=== PATIENT | male | born 1965 | race Caucasian/White ===

== ENCOUNTER 2017-03-06 12:00 | Inpatient (IN) | payer BC ==
--- NOTE | ~2017-03-06 | OP ---
Record Of Operation [facility] [address] [place]. [address] NAME: DAPHNE PARNELL 3RD : 65 STATUS : DIS IN PAT#: [id number] AGE: 51 ADM/REG DATE : 03/06/17 MR#: [id number] REPORT SERV DATE: 03/09/17 DICTATED BY: YOSI EUBANKS DATE: 03/07/17 REPORT STATUS : Draft TRANSCRIBED BY: MODL DATE: 03/07/17 DATE OF PROCEDURE: 03/06/2017 TITLE OF OPERATION: 1. Cystourethroscopy with removal of left ureteral stent. 2. Robotic-assisted laparoscopic extensive ureterolysis. 3. Robotic-assisted laparoscopic ureteroureterostomy with placement of 6 x 26 left ureteral stent. PREOPERATIVE DIAGNOSIS: Left ureteral stricture. POSTOPERATIVE DIAGNOSIS: Left ureteral stricture. INDICATIONS: Mr. Parnell is a 51-year-old male with history of bilateral ureteral stones with hydronephrosis and renal failure. He had his stones treated. He has a period of prolonged ureteral stenting. His right side has healed very well. Left side had developed a stricture. He is here for repair. ANESTHESIA: General. COMPLICATIONS: None. IMPLANT: 1. 6 x 26 left ureteral stent. 2. A 16-Maori Loja catheter. 3. A #10 round KENAY drain. SPECIMENS: None. NARRATIVE: The patient was brought to the operating room, identified by his wristband. General anesthesia was induced and Ancef was given for preoperative antibiotics. A flexible cystoscope was placed into his urethra and into his bladder. The left ureteral stent was seen emanating from the left orifice. It was grasped with a flexible grasper and removed. Next, he was placed in the left flank position, secured to the bed with pads and tape. He was then prepped and draped in sterile fashion. The abdomen was insufflated to a pressure of 15 mmHg using a Veress needle. Standard port placement was performed on the left side of the body with four 8 mm ports placed under direct vision. A 12 mm port was placed in infraumbilical position for commercial assistant port. The robot was docked. I began the operation by dropping the colon along the white line of Toldt, exposing the retroperitoneum. The gonadal vein was identified and traced up to the level of the renal vein. Next beneath the gonadal vein, there was an inflammatory mass or tissue surrounding the ureter. The ureter was densely inflamed from the level of the renal pelvis all the way down into the true pelvis. I meticulously mobilized the ureter with the aid of Castillo scissors and bipolar cautery and clips. This took several hours as the ureter was quite encase, it was very nonmobile. Once the entire ureter had been freed, the area of scar was identified and transected with Castillo scissors. The ureter was spatulated proximally in a lateral direction. The scar was fairly Record Of Operation [place] [id number] [facility] [place]. [address] NAME: DAPHNE PARNELL 3RD : 65 STATUS : DIS IN PAT#: [id number] AGE: 51 ADM/REG DATE : 03/06/17 MR#: [id number] REPORT SERV DATE: 03/09/17 DICTATED BY: YOSI EUBANKS DATE: 03/07/17 REPORT STATUS : Draft TRANSCRIBED BY: MENDEZ DATE: 03/07/17 extensive. It was spatulated medially in a distal direction. At this time due to the extensive nature of the scar and the relative ureteral immobility, I had a hard time bringing the ends back together for reconstruction. Given these findings, I mobilized the kidney completely off the lateral sidewall and off the spleen and pancreas. Care was taken not to injure these structures. The kidney was then brought down inferiorly a centimeter or two. This allowed for me to get the ends back together. Using 4-0 Vicryl suture, an interrupted ureteroureterostomy was performed. A 6 x 26 ureteral stent was placed in an antegrade fashion. I did try to sew the proximal ureter up with 4-0 V lock suture at the end. Then during the operation, I did call Mr. Parnell's 's to discuss the findings of the ureteral dissection was challenging and had a high failure rate. We discussed the options including placing things back together, a nephrectomy. Mr. Parnell's creatinine baseline is 1.6. We both felt that taking out his kidney would be unduly risky, and putting him on dialysis. Therefore, reconstruction was performed. She understands that if this fails, he will need likely to have a ureteroileal interposition in order to save the kidney and not having indwelling stent. There was no extravasation of urine from the final repair. There are no complications. The robot was then undocked. A #10 KENYA drain was placed to the inferior port. The commercial assistant port was closed with 0 Vicryl suture using a Alberto-Quinn device. All ports were then removed. Subcutaneous tissues were closed with 3-0 Vicryl suture. Skin was closed with 4-0 Monocryl suture in a subcuticular fashion. Dermabond dressing was placed. The patient was awoken from anesthesia and transferred to the recovery room in stable condition. There were no complications. MAURO/MENDEZ Yosi Eubanks MD / [id number] CC: MD Miah Mccarthy D.O.
--- NOTE | ~2017-03-06 | PREOPHP ---
PreOp History and Physical [address] [place]. [address] NAME: DAPHNE PARNELL 3RD : 65 STATUS : DIS IN [facility]#: [id number] AGE: 51 ADM/REG DATE : 03/06/17 MR#: [id number] REPORT SERV DATE: 04/11/17 DICTATED BY: YOSI EUBANKS DATE: 04/11/17 REPORT STATUS : Draft TRANSCRIBED BY: MENDEZ DATE: 04/11/17 CHIEF COMPLAINT: Left ureteral stricture. HISTORY OF PRESENT ILLNESS: Mr. Parnell is a very pleasant gentleman who presented to me initially with bilateral ureteral stones with obstructing hydronephrosis. These were treated in stages. His right ureter healed fine. His left ureter developed a stricture. It seems to be a fairly short stricture. He is here for robotic-assisted laparoscopic ureterolysis with ureteroureterostomy. PAST MEDICAL HISTORY: Consistent with chronic kidney disease, nephrolithiasis, hypertension, hypercholesterolemia, diabetes, cataracts, sleep apnea. SURGICAL HISTORY: Lithotripsy with stent placement in the past. FAMILY HISTORY: Noncontributory. SOCIAL HISTORY: No smoking, drinking, or illegal drugs. FAMILY HISTORY: Noncontributory. MEDICATIONS: Reviewed on the chart. ALLERGIES: NO KNOWN DRUG ALLERGIES. REVIEW OF SYSTEMS: 12-point review of systems was performed. Pertinent positives listed in the HPI. PHYSICAL EXAMINATION: VITAL SIGNS: Afebrile. Vital signs stable. No acute distress. Appears stated age. HEENT: Head is normocephalic, atraumatic. LUNGS: Breathing nonlabored. He is not in respiratory distress. CARDIAC: Pulse is regular in rate and rhythm. ABDOMEN: Soft, nontender, nondistended. He has some left CVA tenderness. NEURO: He is alert and oriented x3. LABORATORY DATA: No new labs. IMAGING: No new imaging. ASSESSMENT AND PLAN: Mr. Parnell has a left ureteral stricture. He has been counseled regarding his options including nephrostomy tube placement, chronic stent placement, nephrectomy, and reconstruction. He is here for robot assisted laparoscopic reconstruction. Risks and benefits were discussed in detail. We will proceed as discussed. JKM/MODL PreOp History and Physical [address] [place]. [address] NAME: DAPHNE PARNELL 3RD : 65 STATUS : DIS IN PAT#: [id number] AGE: 51 ADM/REG DATE : 03/06/17 MR#: [id number] REPORT SERV DATE: 04/11/17 DICTATED BY: YOSI EUBANKS DATE: 04/11/17 REPORT STATUS : Draft TRANSCRIBED BY: MENDEZ DATE: 04/11/17 Yosi Eubanks MD / [id number] CC: MD Miah Mccarthy D.O.
[~2017-03-06 12:00] MED LIST: ADVIL MIGRAI200 MG PO; ASAB PO; AXIRON TOP; B12250T PO; BEN25 PO; BYETTA10 SC; CIP5 PO; CO Q-10100 MG PO; CO Q-1030 MG PO; COZAAR100 MG PO; CYANO1000T PO; DHA PO; ENDOCET1 TAB PO; FLAG500TAB PO; FLOMAX4 PO; FLORASTOR250 MG PO; GINKGO BILO2 PO; GLUCOPHAGE1000 MG PO; GLUCOTRO10 PO; GLUCPH PO; KRILL OIL PO; KRILLOIL PO; LANTUSCART SC; LIPITOR10 PO; LIPITOR20 PO; LIPITOR40 PO; LIPOTRIAD1 CAP PO; LOP25 PO; LORTAB10 PO; LORTABLIQ PO; LUNESTA1 MG PO; LUNESTA2 M1 PO; MULTIPLE VIT PO; MULTIVIT/MIN PO; NORV10 PO; NOVOLOG SC; OMEGA PO; PEPCID COMPLETE PO; PHENERGAN PO; POTASSIUM/MAGNESIUM PO; PRESERVISION A1 EAC1 PO; PRESERVISION PO; PRIN10 PO; TESTOSTERONE; VESICARE10 MG PO; VICTOZA18 MG/3 ML SC; VITAMIN D2000 UNIT PO; VITAMIN D31000 UNIT PO
[2017-03-06 22:00] LABS: BASOPHILS 0.1 %; BASOPHILS ABSOLUTE 0.01 10/3/uL (0.0-0.16); EOSINOPHILS 0 %; HEMATOCRIT 38.9 % (40.0-51.0); HEMOGLOBIN 13.5 g/dL (13.6-17.8); IMMATURE GRANULOCYTES 0.2 %; IMMATURE GRANULOCYTES ABSOLUTE 0.02 10/3/uL (0.0-0.11); LYMPHOCYTES 5.3 %; LYMPHOCYTES ABSOLUTE 0.64 10/3/uL (0.67-4.30); MANUAL DIFF NO %; MEAN CORPUS HGB CONC 34.7 g/dL (32.0-36.0); MEAN CORPUSCULAR HEMOGLOB 30.3 pg (26.0-34.0); MEAN CORPUSCULAR VOLUME 87.2 fL (80-100); MEAN PLATELET VOLUME 9.8 fL (9.2-13.0); MONOCYTES 6.3 %; MONOCYTES ABSOLUTE 0.75 10/3/uL (0.21-1.20); NEUTROPHILS 88.1 %; NEUTROPHILS ABSOLUTE 10.55 10/3/uL (2.02-8.40); PLATELET COUNT 209 10/3/uL (150-400); RBC DISTRIBUTION WIDTH 12.7 % (12.0-16.0); RED CELL COUNT 4.46 10/6/uL (4.7-6.1)
[2017-03-06 22:12] LABS: BUN (BLOOD UREA NITROGEN) 16 MG/DL (6-23); CALCIUM, SERUM 8.3 MG/DL (8.5-10.4); CHLORIDE, SERUM 104 MMOL/L (96-112); CREATININE 2.02 MG/DL (0.70-1.30); GFR AFRICAN AMERICAN 43 ML/MIN (>=60); GFR NON AFRICAN AMERICAN 37 ML/MIN (>=60); POTASSIUM, SERUM 3.9 MMOL/L (3.5-5.3); SODIUM, SERUM 144 MMOL/L (135-148)
[2017-03-06 22:16] LABS: CO2 (CARBON DIOXIDE) 25 MMOL/L (24-34); GLUCOSE, SERUM 206 MG/DL (60-99)
[2017-03-07 08:17] LABS: BASOPHILS 0.2 %; BASOPHILS ABSOLUTE 0.02 10/3/uL (0.0-0.16); EOSINOPHILS 0.1 %; EOSINOPHILS ABSOLUTE 0.01 10/3/uL (0.0-0.53); HEMATOCRIT 38.1 % (40.0-51.0); HEMOGLOBIN 13.1 g/dL (13.6-17.8); IMMATURE GRANULOCYTES 0.2 %; IMMATURE GRANULOCYTES ABSOLUTE 0.02 10/3/uL (0.0-0.11); LYMPHOCYTES 14.8 %; LYMPHOCYTES ABSOLUTE 1.33 10/3/uL (0.67-4.30); MEAN CORPUS HGB CONC 34.4 g/dL (32.0-36.0); MEAN CORPUSCULAR HEMOGLOB 30.3 pg (26.0-34.0); MONOCYTES 12.1 %; MONOCYTES ABSOLUTE 1.09 10/3/uL (0.21-1.20); NEUTROPHILS 72.6 %; NEUTROPHILS ABSOLUTE 6.52 10/3/uL (2.02-8.40); PLATELET COUNT 243 10/3/uL (150-400); RBC DISTRIBUTION WIDTH 12.7 % (12.0-16.0); RED CELL COUNT 4.33 10/6/uL (4.7-6.1)
[2017-03-07 08:20] LABS: MANUAL DIFF NO %
[2017-03-07 08:28] LABS: BUN (BLOOD UREA NITROGEN) 15 MG/DL (6-23); CALCIUM, SERUM 8.8 MG/DL (8.5-10.4); CHLORIDE, SERUM 107 MMOL/L (96-112); CREATININE 1.67 MG/DL (0.70-1.30); GFR AFRICAN AMERICAN 54 ML/MIN (>=60); GFR NON AFRICAN AMERICAN 47 ML/MIN (>=60); POTASSIUM, SERUM 4.3 MMOL/L (3.5-5.3); SODIUM, SERUM 146 MMOL/L (135-148)
[2017-03-07 08:29] LABS: CO2 (CARBON DIOXIDE) 30 MMOL/L (24-34); GLUCOSE, SERUM 132 MG/DL (60-99)
[2017-03-08] MEDS ORDERED: DSS PO (09:45)
[2017-03-08] MEDS ORDERED: MEP50TAB PO (09:45)
[2017-07-08] MEDS ORDERED: NOVOLOG SC (15:33)
[2017-07-08] MEDS ORDERED: TRESIBA FL100 UNIT/1 SC (15:33)
== END 2017-03-08 14:22 | disposition home or self-care (01) | DRG 660 ==
LOC: SDC/OF 12:00 → 4SO 22:00
PROVIDERS: Urology
DX: N13.1 Hydronephrosis with ureteral stricture, not elsewhere classified (principal); E11.22 Type 2 diabetes mellitus with diabetic chronic kidney disease; Z88.5 Allergy status to narcotic agent; I12.9 Hypertensive chronic kidney disease with stage 1 through stage 4 chronic kidney disease, or unspecified chronic kidney disease; N18.9 Chronic kidney disease, unspecified; G47.33 Obstructive sleep apnea (adult) (pediatric); E66.9 Obesity, unspecified; Z68.34 Body mass index [BMI] 34.0-34.9, adult; Z98.84 Bariatric surgery status
CPT/HCPCS: 36415; 80048; 82570; 82962; 85025; 86850; 86900; 86901; 86920; A9270-GY; C2617; J0690; J1170; J2250; J2370; J2405; J2710; J2795; J3010

== ENCOUNTER 2017-04-17 07:52 | Day surgery (SDC) | payer BC ==
[2017-04-13 13:18] LABS: ASCORBIC ACID (UR NOT ORDER) 40 (NEG); BILIRUBIN, URINE NEGATIVE (NEG); KETONE, URINE NEGATIVE (NEG); LEUKOCYTE ESTERASE(NOT OR LARGE (NEG); WBC (NOT ORDERED) (RFLEX) 36 (0-5)
[2017-04-13 13:20] LABS: HEMATOCRIT 41.5 % (40.0-51.0); HEMOGLOBIN 14.8 g/dL (13.6-17.8)
[2017-04-13 13:36] LABS: BUN (BLOOD UREA NITROGEN) 23 MG/DL (6-23); CALCIUM, SERUM 9.1 MG/DL (8.5-10.4); CHLORIDE, SERUM 106 MMOL/L (96-112); CO2 (CARBON DIOXIDE) 32 MMOL/L (24-34); CREATININE 1.49 MG/DL (0.70-1.30); GFR AFRICAN AMERICAN 62 ML/MIN (>=60); GFR NON AFRICAN AMERICAN 54 ML/MIN (>=60); GLUCOSE, SERUM 102 MG/DL (60-99); POTASSIUM, SERUM 3.8 MMOL/L (3.5-5.3); SODIUM, SERUM 142 MMOL/L (135-148)
--- NOTE | ~2017-04-17 | OP ---
Record Of Operation [facility] [address] [facility] [place]. [address] NAME: DAPHNE PARNELL 3RD : 65 STATUS : REG [facility]#: [id number] AGE: 51 ADM/REG DATE : 04/17/17 MR#: [id number] REPORT SERV DATE: 04/17/17 DICTATED BY: YOSI EUBANKS DATE: 04/17/17 REPORT STATUS : Draft TRANSCRIBED BY: MODL DATE: 04/17/17 DATE OF PROCEDURE: 04/17/2017 SURGEON: Yosi Eubanks MD. TITLES OF OPERATION: Cystourethroscopy, bilateral retrograde pyelograms, left ureteroscopy, removal of left ureteral stent, and placement of 6 x 26 left ureteral stent without tether. PREOPERATIVE DIAGNOSES: 1. Left ureteral stricture. 2. Renal stones. 3. Hydronephrosis. POSTOPERATIVE DIAGNOSES: 1. Left ureteral stricture. 2. Renal stones. 3. Hydronephrosis. INDICATIONS: Mr. Parnell is a 51-year-old male, with bilateral ureteral stones. He developed a stricture bilaterally. The right side healed spontaneously. The left side did not heal, he underwent a ureterostomy that was very complex approximately six weeks ago. He is here for interrogation. ANESTHESIA: General. COMPLICATIONS: None. IMPLANT: 6 x 26 left ureteral stent. SPECIMEN: None. NARRATIVE: The patient was brought to the operating room, identified by his wristband. General anesthesia was induced and Ancef was given for preoperative antibiotics. He was placed in dorsal lithotomy position, and prepped and draped in sterile fashion. A cystoscope was placed into his urethra and into his bladder. The right ureteral orifice was identified. A retrograde pyelogram was shot through a 5-Tongan open-ended catheter. The right ureter was normal, there was no hydronephrosis. The left ureteral stent was grasped with a flexible grasper and removed. A left retrograde pyelogram was shot, which demonstrated residual hydronephrosis, but no obvious stricture of the ureter. A wire was placed up to the level of the renal pelvis under fluoroscopic guidance and a flexible ureteroscope was placed over the wire into the kidney. The kidney was inspected, it was normal. The ureter was inspected, there was some edema surrounding some proximal ureteral stones. Which were dislodged back into the renal pelvis. The ureter was still healing, the sutures from the prior surgery were present. There was no obvious stricture. The ureter was healing well. There was no pooling of contrast in the ureter. Ultimately, I thought his ureter was healing well, I need more time, therefore, I elected to replace the stent. A Record Of Operation [facility] [address] [place] [address] NAME: DAPHNE PARNELL 3RD : 65 STATUS : REG [facility]#: [id number] AGE: 51 ADM/REG DATE : 04/17/17 MR#: [id number] REPORT SERV DATE: 04/17/17 DICTATED BY: YOSI EUBANKS DATE: 04/17/17 REPORT STATUS : Draft TRANSCRIBED BY: MENDEZ DATE: 04/17/17 6 x 26 [place] stent was placed in standard fashion. The proximal coil was in the renal pelvis and the distal coil was in the bladder. I will plan on seeing him back in one month to repeat ureteroscopy and see if this was healed. Ultimately, if this is not healed, he will need to have a complex reconstruction including either a buccal graft ureteroplasty versus an ileal ureter. I am still hopeful this will heal normally. MAURO/MENDEZ Yosi Eubanks MD / [id number] CC: Yosi Eubanks MD
[~2017-04-17 07:52] MED LIST changes: +DSS PO; +MEP50TAB PO
[2017-07-08] MEDS ORDERED: NOVOLOG SC (15:33)
[2017-07-08] MEDS ORDERED: TRESIBA FL100 UNIT/1 SC (15:33)
== END 2017-04-17 13:23 | disposition home or self-care (01) ==
LOC: SDC 07:52
PROVIDERS: Urology
PROC: 0T778DZ Dilation of Left Ureter with Intraluminal Device, Via Natural or Artificial Opening Endoscopic (ICD-10-PCS; principal; 2017-04-17 09:30)
DX: N13.1 Hydronephrosis with ureteral stricture, not elsewhere classified (principal); N20.0 Calculus of kidney; I10 Essential (primary) hypertension; E11.9 Type 2 diabetes mellitus without complications; E11.22 Type 2 diabetes mellitus with diabetic chronic kidney disease; I12.9 Hypertensive chronic kidney disease with stage 1 through stage 4 chronic kidney disease, or unspecified chronic kidney disease; N18.9 Chronic kidney disease, unspecified; Z88.5 Allergy status to narcotic agent; Z79.899 Other long term (current) drug therapy; Z79.4 Long term (current) use of insulin; Z79.891 Long term (current) use of opiate analgesic; Z79.82 Long term (current) use of aspirin; Z98.42 Cataract extraction status, left eye; Z98.41 Cataract extraction status, right eye; Z96.1 Presence of intraocular lens; Z98.890 Other specified postprocedural states; D64.9 Anemia, unspecified; M19.90 Unspecified osteoarthritis, unspecified site; H35.30 Unspecified macular degeneration; J45.909 Unspecified asthma, uncomplicated
CPT/HCPCS: 74420; 80048; 81001; 82962; 85014; 85018; 87086; 93005; C1758; C2617; J0330; J0690; J2250; J2405; J3010; Q9967